=== PATIENT | female | born 1965 | race Caucasian/White ===

== ENCOUNTER → 2023-09-15 07:05 | Outpatient (REF) | payer OTHER, SELFPAY | LOC: HWRAD 07:05 | PROVIDERS: ATTENDING PHYSICIAN Internal Medicine | DX: R10.13 Epigastric pain (principal) | CPT/HCPCS: 76700 ==

== ENCOUNTER → 2023-10-06 07:28 | Outpatient (REF) | payer OTHER, SELFPAY | LOC: WDC 07:28 | PROVIDERS: ATTENDING PHYSICIAN Internal Medicine | DX: Z12.31 Encounter for screening mammogram for malignant neoplasm of breast (principal); Z12.39 Encounter for other screening for malignant neoplasm of breast | CPT/HCPCS: 77063; 77067 ==

== ENCOUNTER → 2023-10-06 12:19 | Outpatient (REF) | payer OTHER, SELFPAY | LOC: HWRAD 12:19 | PROVIDERS: ATTENDING PHYSICIAN Internal Medicine | DX: Z13.820 Encounter for screening for osteoporosis (principal) | CPT/HCPCS: 77080 ==

== ENCOUNTER 2024-01-02 08:27 | Emergency (ER) | payer OTHER, SELFPAY ==
[2024-01-02 08:32] VITALS: BP 101/76
--- NOTE | 2024-01-02 09:27 | ED.GENMED ---
History of Present Illness
General
Chief Complaint: Musculo-Skeletal Complaint
Source: patient
Exam Limitations: none
Time Seen by Provider: 01/02/24 09:09
Travel History
Have you had any contact with someone who has COVID-19?: No
Do you have any symptoms of coronavirus? Fever > 100 degrees, chills, cough, shortness of breath, sore throat, loss of taste or smell, muscle aches, or headache?: No
History of Present Illness
History of Present Illness:
58-year-old female, severe shooting pain down the back of her left leg and left buttock with some left lower extremity weakness. Progressive over 24 hours. No history of trauma although she did move mulch a few days ago. No abdominal pain no
bowel or bladder issues no fever no systemic symptoms. Patient took Tylenol NSAIDs and a leftover narcotic tablet at 4 AM without improvement
Past History
Past History
ED Past Medical History: None
ED Past Surgical History: Orthopedic
Review of Systems
Review of Systems
All Other Systems: Not applicable
Constitutional: Denies fever
ABD/GI: Reports no symptoms
Phy Exam
Physical Exam
Physical Exam:
GENERAL: Alert and oriented. Nontoxic but appears uncomfortable clearly appears uncomfortable with ambulation back to the stretcher. Some slight limp.
EYE: Orbits normal.
NECK: Supple
CARDIAC: Regular rate and rhythm without any obvious murmurs.
LUNGS: Clear breath sounds,normal
ABDOMEN: Soft, without focal tenderness or distention
NEUROLOGICAL: Alert and oriented , slight decreased plantar and dorsiflexion of the left ankle. Mildly hyperreflexic left patellar reflex.
SKIN: Warm and dry, no rash or lesion, no discoloration, skin intact.
MUSCULOSKELETAL: No edema,no deformity.Good color. No swelling no cord no erythema
PSYCH: Normal and appropriate interaction.
Course
Orders/Labs/Results
Orders:
Orders
01/02/24 09:18
IV Insert/Care/Rem.- Treatment PRN
Dexamethasone Sod Phosphate [Decadron] 6 mg IV NOW STA
HYDROmorphone [Dilaudid] 0.5 mg IV NOW STA
Ketorolac [Toradol] 15 mg IV NOW STA
01/02/24 09:23
MR Lumbar Without Contrast Urgent
Comment:
Reason For Exam: Left leg pain/sciatica/weakness
OK for patient to be off Cardiac Monitoring for MRI: Yes
Recent pill cam endoscopy?: No
01/02/24 09:31
Basic Metabolic Panel Urgent
CRP [C-Reactive Protein] Urgent
Complete Blood Count/With Diff Urgent
ESR [Erythrocyte Sed Rate] Urgent
01/02/24 11:10
HYDROmorphone [Dilaudid] 0.5 mg .ROUTE .STK-MED ONE
HYDROmorphone [Dilaudid] 0.5 mg IV NOW STA
US Periph Venous LOWER Ext LT Urgent
Comment:
Reason For Exam: Left leg pain
01/02/24 13:06
HYDROmorphone [Dilaudid] 0.5 mg IV NOW STA
01/02/24 13:07
HYDROmorphone [Dilaudid] 0.5 mg .ROUTE .STK-MED ONE
01/02/24 13:48
HYDROmorphone [Dilaudid] 0.5 mg IV NOW STA
Abnormal Lab Results
01/02/24
09:31
MCHC 32.4 L g/dL
(33.0-37.0)
MPV 10.8 H fL
(7.4-10.4)
BUN 22 H mg/dl
(7-17)
01/02/24 09:31
01/02/24 09:31
Vital Signs
Initial and Last Documented VS:
Initial Vital Signs
Temp Pulse Resp BP Pulse Ox
98.1 F 79 18 101/76 100
01/02/24 08:32 01/02/24 08:32 01/02/24 08:32 01/02/24 08:32 01/02/24 08:32
Last Documented Vital Signs
Temp Pulse Resp BP Pulse Ox
98.1 F 79 18 101/76 100
01/02/24 08:32 01/02/24 08:32 01/02/24 08:32 01/02/24 08:32 01/02/24 08:32
MDM/Problems Addressed
Differential Diagnosis Includes:
Sciatica/piriformis syndrome. Doubt systemic infectious or other issue. Highly doubt DVT.
*Radiology
Radiology exam reviewed: radiology read reviewed (L5-S1 disc herniation with significant impingement.)
*Pulse Oximetry
Patient hypoxic: no
*Critical Care Note
Total Time (30-74mins, 75-104mins- exclusive of procedures): Not Applicable
Update Note
Update Note:
Report sent to the spine surgery. Awaiting reply but do not feel this would be emergent surgery. Steroids pain management close follow-up
ED Attending Note
-
Portions of this chart may have been created with voice recognition software.� Occasional wrong word or��sound alike� substitutions may have occurred due to the inherent limitations of voice recognition software.
Discharge Plan
Departure
Patient Disposition: Home (Routine Discharge)
Date of Disposition: 01/02/24
Time of Disposition: 13:49
Patient with high blood pressure during this ER visit?: No
Discharge Problem:
Severe sciatica, L5-S1 nerve impingement
Instructions: Sciatica (DC)
Prescriptions:
New
acetaminophen-codeine 300-30 mg tablet
1 tab PO Q4HPRN PRN (Reason: pain) Qty: 14 0RF
prednisone 10 mg tablet
10 mg PO ONCE Qty: 30 0RF
Rx Instructions:
5 tablets day 1. Then 1 less tablet every other day until gone
Referrals:
Uriel Domingo MD [Active] - Follow up in 5-7 days
Bijal Deshpande MD [Family Provider] -
Interventions
Interventions:
*Risk Screen - Suicide Last Done: 01/02/24 12:58
*General Assessment Last Done: 01/02/24 12:55
*Neglect/Abuse Screening Last Done: 01/02/24 12:58
ED- Fall Risk Assessment Last Done: 01/02/24 12:55
*ED COVID-19 Vaccine History Last Done: 01/02/24 08:32
ED-Musculoskeletal Assessment Last Done: 01/02/24 12:58
Discharge Date and Time
Print Language: DANISH
[2024-01-02] MEDS: DILAUDID 0.5 MG IV ×4 (09:42→13:59)
[2024-01-02] MEDS: TORADOL 15 MG IV (09:42)
[2024-01-02] MEDS: DECADRON 6 MG IV (09:42)
[2024-01-02 09:51] LABS: % Basophils 1.7 % (0-2); % Immature Granulocytes 0.2 % (0-0.5); % Lymphocytes 31.9 % (20.5-51.1); % Monocytes 6.8 % (1.7-9.3); % Neutrophils 56.4 % (42.2-75.2); Absolute Basophils 0.1 10^3/uL (0-0.2); Absolute Eosinophils 0.2 10^3/uL (0-0.7); Absolute Lymphocytes 1.7 10^3/uL (1.2-3.4); Absolute Monocytes 0.4 10^3/uL (0.1-0.6); Hematocrit 42.3 % (37.0-47.0); Hemoglobin 13.7 g/dL (12.0-16.0); Mean Corp Hgb Conc. 32.4 g/dL (33.0-37.0); Mean Corpuscular Volume 92.6 fL (81.0-99.0); Mean Platelet Volume 10.8 fL (7.4-10.4); Nucleated Red Blood Cells % 0 %; Platelet Count 217 10^3/uL (130-400); Red Blood Cell Count 4.57 10^6/uL (4.20-5.40); Red Cell Dist. Width 12.5 % (11.5-14.5); White Blood Cell Count 5.3 10^3/uL (4.8-10.8)
[2024-01-02 10:08] LABS: Blood Urea Nitrogen 22 mg/dl (7-17); Calcium 9.9 mg/dl (8.4-10.2); Carbon Dioxide 27 mmol/L (22-30); Chloride 102 mmol/L (98-107); Glucose 94 mg/dl (70-99); Potassium 4.3 mmol/L (3.5-5.1); Sodium 139 mmol/L (135-145); eGFR > 60.00
[2024-01-02 10:12] LABS: C-Reactive Protein < 5.00 mg/L (0.0-10.00)
[2024-01-02 11:09] LABS: Erythrocyte Sed Rate 9 mm/hour (0-20)
[2024-01-02 12:59] VITALS: BMI 25.0
== END 2024-01-02 14:15 | disposition home or self-care (01) ==
LOC: EMR 08:27
PROVIDERS: EMERGENCY PHYSICIAN Emergency Medicine; FAMILY PHYSICIAN Internal Medicine
DX: M51.17 Intervertebral disc disorders with radiculopathy, lumbosacral region (principal)
CPT/HCPCS: 99284; 96374; 96375; 96376; 72148; 80048; 85025; 85652; 86140; 93971

== ENCOUNTER 2024-01-10 06:08 | Day surgery (SDC) | payer OTHER, SELFPAY ==
[2024-01-10] VITALS (7 sets, daily range): BP systolic 92–111; BP diastolic 43–69; BMI 25.0
[2024-01-10] MEDS: SKELAXIN 800 MG PO (10:24)
[2024-01-10] MEDS: TYLENOL 1000 MG PO (10:24)
[2024-01-10] MEDS: CELEBREX 200 MG PO (10:25)
[2024-01-10] MEDS: NORMOSOL-R 1000 IV (10:26)
[2024-01-10] MEDS: LYRICA 150 MG PO (10:26)
[2024-01-10] MEDS: VANCOCIN 200 IV (11:46)
[2024-01-10] MEDS: DILAUDID 0.25 MG IV ×4 (15:15→15:47)
[2024-01-10] MEDS: ROXICODONE 5 MG PO (16:24)
== END 2024-01-10 16:55 | disposition home or self-care (01) ==
LOC: SDS 06:08
PROVIDERS: ATTENDING PHYSICIAN Orthopaedic Surgery Orthopaedic Surgery of the Spine; FAMILY PHYSICIAN Internal Medicine
DX: M51.27 Other intervertebral disc displacement, lumbosacral region (principal)
CPT/HCPCS: 63030; 72020

== ENCOUNTER → 2024-04-19 06:25 | Day surgery (SDC) | payer OTHER, SELFPAY | LOC: GI 06:25 | PROVIDERS: ATTENDING PHYSICIAN Internal Medicine Gastroenterology | DX: D12.4 Benign neoplasm of descending colon (principal); K57.30 Diverticulosis of large intestine without perforation or abscess without bleeding; Z86.010 Personal history of colon polyps | CPT/HCPCS: 45385; 88305 ==

== ENCOUNTER → 2024-10-11 07:28 | Outpatient (REF) | payer OTHER, SELFPAY | LOC: WDC 07:28 | PROVIDERS: ATTENDING PHYSICIAN Internal Medicine | DX: Z12.31 Encounter for screening mammogram for malignant neoplasm of breast (principal) | CPT/HCPCS: 77063; 77067 ==